=== PATIENT | female | born 1990 | race Caucasian/White ===

== ENCOUNTER → 2016-11-09 | Outpatient (CLI) | payer MEDICAID ==
[2016-11-09 11:48] LABS: LYMPH # 1.6 K/mm3 (0.7-4.5); LYMPH % 18.8 % (10-50.0)
[2016-11-09 12:30] LABS: BUN 7 mg/dL (7-18)
[2016-11-09 12:33] LABS: GFR (ESTIMATED) 100 ML/MIN (59-)
[2016-11-10 06:41] LABS: Vitamin B12 258 pg/mL (211-946)
[2016-11-10 08:37] LABS: LH 3.5 mIU/mL (.)
[2016-11-11 07:36] LABS: Vitamin D, 25-Hydroxy 11.3 ng/mL (30.0-100.0)
[2016-11-14 10:49] LABS: Testosterone, Total, LC/MS 22.3
[2016-11-16 19:17] LABS: 17-OH Progesterone LCMS <10
[2016-11-16 19:18] LABS: DHEA-Sulfate 276.7
== END ==
LOC: LAB 11:31
PROVIDERS: Internal Medicine Adolescent Medicine
DX: R53.83 Other fatigue (principal); Z87.42 Personal history of other diseases of the female genital tract